=== PATIENT | male | born 1960 | race African-American/Black ===

== ENCOUNTER 2018-05-05 10:47 | Emergency (ER) | payer BC, OTHER ==
[~2018-05-05] VITALS: Ht 175.3 cm; Wt 100.0 kg
[~2018-05-05 10:47] MED LIST: FEXO180T87 PO; PRAV20TA57 PO; TRIA1TAB94 PO; ZOLOFT PO
[2018-05-05 12:40] VITALS: BP 124/86
== END 2018-05-05 13:25 | disposition home or self-care (01) ==
LOC: ER 10:47
DX: B34.9 Viral infection, unspecified (principal); K13.79 Other lesions of oral mucosa
CPT/HCPCS: 99281

== ENCOUNTER 2019-09-07 14:22 | Emergency (ER) | payer BC, OTHER ==
[~2019-09-07] VITALS: Ht 175.3 cm; Wt 91.0 kg
[2019-09-07 17:37] LABS: BASOPHILS % 0.8 % (0.0-2.0); EOSINOPHILS % 1.2 % (0.0-5.0); HEMATOCRIT. 40.9 % (42.0-52.0); HEMOGLOBIN. 14.2 g/dL (14.0-18.0); LYMPHOCYTES % 35.4 % (20.0-50.0); MEAN CORPUSCULAR HEMOGLOBIN 29.8 pg (28.0-32.0); MEAN CORPUSCULAR VOLUME 85.5 fL (80.0-94.0); MEAN PLATELET VOLUME 7.8 fl (7.4-10.4); NEUTROPHILS % 48.6 % (40.0-76.0); PLATELET 258 x1000/uL (130-400); RED BLOOD CELL COUNT 4.78 mill/uL (4.7-6.1); RED CELL DISTRIBUTION WIDTH 13.5 % (11.6-14.6)
[2019-09-07 17:41] LABS: CLARITY URINE CLEAR (CLEAR); COLOR URINE YELLOW (YELLOW); KETONES URINE 2+ (NEGATIVE); LEUKOCYTE ESTERASE URINE NEGATIVE (NEGATIVE); NITRITE URINE NEGATIVE (NEGATIVE); OCCULT BLOOD URINE NEGATIVE (NEGATIVE); PH URINE 5.5 (4.5-8.0); PROTEIN URINE NEGATIVE (NEGATIVE); SPECIFIC GRAVITY URINE 1.042 (1.005-1.030); UROBILINOGEN URINE 0.2 E.U./dL (0.2-1.0)
[2019-09-07 17:44] LABS: CHLORIDE 100 mEq/L (98-107)
[2019-09-07 17:49] LABS: PROTHROMBIN TIME 10.4 sec (9.6-11.0)
[2019-09-07 20:37] VITALS: BP 128/94
== END 2019-09-07 20:43 | disposition home or self-care (01) ==
LOC: ER 14:22 → CANBEDREQ 23:48
DX: E11.65 Type 2 diabetes mellitus with hyperglycemia (principal); Z20.828 Contact with and (suspected) exposure to other viral communicable diseases; I10 Essential (primary) hypertension; Z96.659 Presence of unspecified artificial knee joint; Z79.899 Other long term (current) drug therapy
CPT/HCPCS: 36415; 71045; 80053; 81003; 82962; 85025; 85610; 99284; C9803; U0003; 87635

== ENCOUNTER 2021-10-05 11:26 | Emergency (ER) | payer BC, OTHER ==
[~2021-10-05] VITALS: Ht 175.3 cm; Wt 104.0 kg
[2021-10-05 11:56] VITALS: BP 156/93
[2021-10-05] MEDS ORDERED: NIRM1TAB PO (13:16)
== END 2021-10-05 11:41 | disposition home or self-care (01) ==
LOC: ER 11:28
DX: U07.1 COVID-19 (principal); E11.9 Type 2 diabetes mellitus without complications; I10 Essential (primary) hypertension; Z98.890 Other specified postprocedural states; Z79.899 Other long term (current) drug therapy
CPT/HCPCS: 99281

== ENCOUNTER 2024-10-04 06:50 | Emergency (ER) | payer BC ==
[~2024-10-04] VITALS: Ht 175.3 cm; Wt 102.0 kg
[~2024-10-04 06:50] MED LIST changes: +EMPA10TA PO; +INSU100I28 SQ; +LOSA25TA26 PO; +METF-1150 PO; +NIRM1TAB PO; +TAMS-54 PO
[2024-10-04 06:55] VITALS: O2SAT 98
[2024-10-04] MEDS: METOCLOPRAMIDE HCL 10MG TABLET PO ONE (07:55)
[2024-10-04] MEDS: KETOROLAC 15MG/ML VIAL IM ONE (07:55)
[2024-10-04] MEDS ORDERED: TOPUD PO (07:57)
[2024-10-04 08:18] VITALS: BP 149/95; PULSE 62; RESP 18; TEMP 36.9; O2SAT 100
== END 2024-10-04 08:20 | disposition home or self-care (01) ==
LOC: ER 06:50
DX: R51.9 Headache, unspecified (principal); I10 Essential (primary) hypertension; E11.9 Type 2 diabetes mellitus without complications; Z86.73 Personal history of transient ischemic attack (TIA), and cerebral infarction without residual deficits; Z79.899 Other long term (current) drug therapy; Z79.84 Long term (current) use of oral hypoglycemic drugs; Z79.4 Long term (current) use of insulin; Z98.890 Other specified postprocedural states
CPT/HCPCS: 96372; 99283; J8597; J1885; Z7610